=== PATIENT | male | born 1960 | race Caucasian/White ===

== ENCOUNTER 2017-12-28 11:42 | Day surgery (SDC) | payer OTHER ==
[~2017-12-28 11:42] MED LIST: CEFAZOLIN 2 GM/50 ML (PMX) 50 ML IVPB; SOD CHLORIDE 0.9% 1,000 ML IV
[2017-12-28] MEDS: SOD CHLORIDE 0.9% 1,000 ML IV (13:02)
[2017-12-28] MEDS: CEFAZOLIN 2 GM/50 ML (PMX) 50 ML IVPB (14:00)
[2017-12-28] MEDS ORDERED: NEOSTIGMINE 3 MG/3 ML SYRINGE (14:59)
[2017-12-28] MEDS ORDERED: MIDAZOLAM 1 MG/ML 2 ML INJ (14:59)
[2017-12-28] MEDS ORDERED: ROCURONIUM 50 MG INJ (14:59)
[2017-12-28] MEDS ORDERED: CEFAZOLIN 1 GM INJ (14:59)
[2017-12-28] MEDS ORDERED: GLYCOPYRROLATE 0.4 MG INJ (14:59)
[2017-12-28] MEDS ORDERED: FENTAnyl 50 MCG/ML VIAL ×3 (14:59→16:46)
[2017-12-28] MEDS ORDERED: PROPOFOL 20 ML (14:59)
[2017-12-28] MEDS ORDERED: ONDANSETRON 4 MG INJ (15:00)
[2017-12-28] MEDS ORDERED: ROPIVACAINE 0.5 % 30 ML VIAL (15:00)
[2017-12-28] MEDS ORDERED: DEXAMETHASONE 4 MG/ML 1 ML INJ (15:00)
[2017-12-28] MEDS ORDERED: POLYMYXIN/BACITRACIN 1L IRRIG (15:13)
[2017-12-28] MEDS ORDERED: METOCLOPRAMIDE 10 MG INJ (15:55)
[2017-12-28] MEDS ORDERED: ALBUTEROL 0.083% (NEB) 2.5 MG/3 ML AMP HHN (16:30)
[2017-12-28] MEDS ORDERED: hydrALAzine 20 MG INJ IV (16:30)
[2017-12-28] MEDS ORDERED: FENTAnyl 50 MCG/ML VIAL IV ×3 (16:30)
[2017-12-28] MEDS ORDERED: LABETALOL HCL 20MG INJ IV (16:30)
[2017-12-28] MEDS ORDERED: MIDAZOLAM 1 MG/ML 2 ML INJ IV (16:30)
[2017-12-28] MEDS: BUPIVACAINE 0.25% (MPF) 30 ML INJ (16:30)
[2017-12-28] MEDS ORDERED: HYDROmorphONE 1 MG/5 ML IV SYRINGE IV ×3 (16:30)
[2017-12-28] MEDS ORDERED: IPRATROPIUM (NEB) 0.5 MG/2.5 ML AMP HHN (16:30)
[2017-12-28] MEDS ORDERED: TRIMETHOBENZAMIDE 100 MG/ML VIAL IM (16:30)
[2017-12-28] MEDS ORDERED: EPHEDrine SULFATE 50 MG/5 ML SYG IV (16:30)
[2017-12-28] MEDS ORDERED: OXYCODONE/ACETAMINOPHEN (5/325) TAB PO ×2 (16:30)
[2017-12-28] MEDS ORDERED: DIPHENHYDRAMINE 50 MG INJ IV (16:30)
[2017-12-28] MEDS ORDERED: KETOROLAC 30 MG INJ (16:44)
[2017-12-28] MEDS: MEPERIDINE 25 MG INJ IV (17:02)
[2017-12-28] MEDS: ONDANSETRON 4 MG INJ IV (17:02)
[2017-12-28] MEDS: HYDROCODONE/APAP (5/325) TAB PO (17:32)
== END 2017-12-28 18:31 | disposition home or self-care (01) ==
LOC: SDS 11:42
DX: K43.9 Ventral hernia without obstruction or gangrene (principal); I10 Essential (primary) hypertension; E78.5 Hyperlipidemia, unspecified; E11.9 Type 2 diabetes mellitus without complications
CPT/HCPCS: 49653; 82962; 88302